=== PATIENT | male | born 1985 | race African-American/Black ===

== ENCOUNTER 2017-09-03 09:51 | Emergency (ER) | payer OTHER ==
[~2017-09-03] VITALS: Ht 172.7 cm; Wt 128.4 kg
[2017-09-03 10:32] VITALS: BP 171/84
[2017-09-03] MEDS ORDERED: POLY10DR EACHEYE (10:54)
--- NOTE | 2017-09-03 10:54 | PHYS DOC ---
Past Medical History Past Medical History: No Pertinent History Past Surgical History: Tonsillectomy Alcohol Use: Occasionally Drug Use: None Adult General Chief Complaint Chief Complaint: EYE PROBLEMS HPI HPI Patient is a 32 year old male presents to the emergency department with complaints of left eye redness and drainage. He has no complaints of eye pain, no foreign body sensation, no loss of vision. He has had symptoms for one day Review of Systems Review of Systems Constitutional: Denies fever or chills [] Eyes: Denies change in visual acuity, complaint of redness and discharge. No eye pain All other systems were reviewed and found to be within normal limits, except as documented in this note. Allergies Allergies Allergies Coded Allergies Type Severity Reaction Last Updated Verified No Known Drug Allergies 09/03/17 No Physical Exam Physical Exam Constitutional: Well developed, well nourished, no acute distress, non-toxic appearance. [] Eyes: PERRLA, EOMI, left conjunctiva beefy red, sclera injected, purulent discharge medial canthus. Upper lid everted no foreign body identified. Funduscopic exam benign Current Patient Data Vital Signs Vital Signs Date Time Temp Pulse Resp B/P (MAP) Pulse Ox O2 Delivery O2 Flow Rate FiO2 09/03/17 10:32 98.1 88 18 97 Room Air 98.1 EKG EKG [] Radiology/Procedures Radiology/Procedures [] Course & Med Decision Making Course & Med Decision Making Pertinent Labs and Imaging studies reviewed. (See chart for details) [] Dragon Disclaimer Dragon Disclaimer This electronic medical record was generated, in whole or in part, using a voice recognition dictation system. Departure Departure Impression: Primary Impression: Conjunctivitis Disposition: 01 HOME, SELF-CARE Condition: STABLE Referrals: NO PCP (PCP) [facility], Patient Instructions: Bacterial Conjunctivitis Scripts Polymyxin B Sulf/Trimethoprim (POLYTRIM EYE DROPS) 10 Ml Drops 1 DROP EACHEYE Q4HRS WA for 7 Days, #10 ML Prov: TURNER GAMBOA APRN 09/03/17 Problem Qualifiers Primary Impression: Conjunctivitis Conjunctivitis type: acute Acute conjunctivitis type: bacterial Laterality : left Qualified Codes: H10.32 - Unspecified acute conjunctivitis, left eye TURNER GABMOA APRN Sep 03, 2017 10:54
== END 2017-09-03 11:03 | disposition home or self-care (01) ==
LOC: ER 09:51
DX: H10.32 Unspecified acute conjunctivitis, left eye (principal)
CPT/HCPCS: 99283